=== PATIENT | female | born 2000 | race Two or more races ===

== ENCOUNTER 2025-04-30 20:02 | Emergency (ER) | payer OTHER ==
[~2025-04-30] VITALS: Ht 167.6 cm; Wt 72.6 kg
[2025-04-30] MEDS ORDERED: KETOROLAC TROMETHAMINE 60 MG VIAL IM ONE ×2 (21:30→21:50)
[2025-04-30 22:05] LABS: BASO % 0.7 % (0.1-1.2); EOS # 0.52 (0.04-0.54); EOS % 5.5 % (0.7-7.0); LYMPH # 2.39 (1.18-3.74); LYMPH % 25.1 % (19.3-53.1); MEAN PLATELET VOLUME 9.30 fl (9.4-12.4); MONO # 0.84 (0.24-0.82); MONO % 8.8 % (4.7-12.5); NEUT # 5.65 (1.56-6.13); NEUT % 59.3 % (34.0-71.1); RED CELL DISTRIBUTION WIDTH 14.1 % (11.6-14.4)
[2025-04-30 22:41] LABS: ALT/SGPT 35 U/L (12-78); AST/SGOT 19 U/L (15-37); BILIRUBIN TOTAL 0.43 mg/dL (0.3-1.2); BUN CREA RATIO 16 (7.0-25.0); CREATININE SERUM 0.81 mg/dL (0.55-1.02); GFR 85.47; GLOBULINA 3.3 G/DL (2.4-3.5); GLUCOSE FASTING 70 mg/dL (65-100); OSMOLALITY SERUM 282 MOSM/KG (275-295)
[2025-04-30 22:45] LABS: HCG QUANTITATIVE < 1 mUI/mL (1-3)
[2025-04-30] MEDS ORDERED: DICY20TA PO (23:07)
== END 2025-04-30 23:40 | disposition home or self-care (01) ==
LOC: ER 20:02
PROVIDERS: General Practice
DX: R10.12 Left upper quadrant pain (principal); J45.909 Unspecified asthma, uncomplicated